=== PATIENT | female | born 1935 | race Caucasian/White ===

== ENCOUNTER 2018-02-09 02:06 | Emergency (ER) | payer MEDICARE, OTHER ==
[~2018-02-09] VITALS: Ht 165.1 cm; Wt 70.3 kg
[~2018-02-09 02:06] MED LIST: ATOR10; Aspirin EC81 MG PO; DONE5; ELIQUIS5 MG PO; LEVSOD50 PO; METO25ER; MYRBETRIQ25 MG
[2018-02-09 02:50] LABS: Calcium, Ionized (POC) 1.19 mmol/L (1.10-1.46); Chloride (POC) 101 mmol/L (98-108); Creatinine (POC) 0.7 mg/dL (0.6-1.0); Glucose (ISTAT POC) 103 mg/dL (70-99); Hemoglobin (POC) 12.6 g/dL (12.0-16.0); Potassium (POC) 3.7 mmol/L (3.5-5.5); Sodium (POC) 141 mmol/L (135-148); Total CO2 (POC) 28 mmol/L (21-32)
== END 2018-02-09 03:10 | disposition home or self-care (01) ==
LOC: ER 02:06
PROVIDERS: Emergency Medicine
DX: S39.012A Strain of muscle, fascia and tendon of lower back, initial encounter (principal); S29.012A Strain of muscle and tendon of back wall of thorax, initial encounter; I25.2 Old myocardial infarction; I10 Essential (primary) hypertension; I48.91 Unspecified atrial fibrillation; Z88.0 Allergy status to penicillin; Z79.899 Other long term (current) drug therapy; W11.XXXA Fall on and from ladder, initial encounter
CPT/HCPCS: 80047; 81000; 85014; 96372; 99283; J1885

== ENCOUNTER 2018-02-11 22:33 | Observation (INO) | payer MEDICARE, OTHER ==
[~2018-02-11] VITALS: Ht 165.1 cm; Wt 69.1 kg
[2018-02-11 23:54] LABS: BASOPHILS ABSOLUTE AUTO 0.06 K/mm3 (0.00-0.23); BASOPHILS PERCENT AUTO 1 % (0-2); EOSINOPHILS ABSOLUTE AUTO 0.18 K/mm3 (0.00-0.68); EOSINOPHILS PERCENT AUTO 2 % (0-6); Hematocrit 39.1 % (33.0-51.0); IMMATURE GRAN ABSOLUTE AUTO 0.02 K/mm3 (0.00-0.10); IMMATURE GRAN PERCENT AUTO 0 % (0-1); LYMPHOCYTES ABSOLUTE AUTO 2.99 K/mm3 (0.84-5.20); LYMPHOCYTES PERCENT AUTO 39 % (21-46); MONOCYTES ABSOLUTE AUTO 0.77 K/mm3 (0.16-1.47); MONOCYTES PERCENT AUTO 10 % (4-13); Mean Corpuscular HGB 29.8 pg (26.0-34.0); Mean Corpuscular HGB Conc 33.2 g/dL (31.5-36.5); Mean Corpuscular Volume 90 fL (80-100); Mean Platelet Volume 10.3 fL (9.1-12.4); NEUTROPHILS ABSOLUTE AUTO 3.67 K/mm3 (1.96-9.15); NEUTROPHILS PERCENT AUTO 48 % (41-73); Platelet Count 240 K/mm3 (150-400); RDW Coefficient Variation 13.1 % (11.7-14.2); RDW Standard Deviation 43.7 fL (35.1-46.3); Red Blood Cell Count 4.36 M/mm3 (3.80-5.20); White Blood Cell Count 7.69 K/mm3 (4.00-11.30)
[2018-02-12 00:14] LABS: Alanine Aminotransfer (ALT/SGP 24 U/L (12-78); Albumin, Blood 3.8 g/dL (3.4-5.0); Alk Phos 91 U/L (50-136); Anion Gap 7 mmol/L (6-16); Aspartate Aminotrans (AST/SGOT 19 U/L (12-37); Bilirubin, Total 0.2 mg/dL (0.1-1.0); Blood Urea Nitrogen 13 mg/dL (8-24); Bun/Creatinine Ratio 18.4 (12.0-20.0); CO2, Blood 29 mmol/L (21-32); Calcium, Blood 8.4 mg/dL (8.5-10.1); Chloride, Blood 107 mmol/L (98-108); Creatinine, Blood 0.71 mg/dL (0.40-1.00); Globulin, Blood 3.8 g/dL (2.2-4.0); Glomerular Filtration Rate >60 (60-); Glucose, Blood 98 mg/dL (70-99); Sodium, Blood 143 mmol/L (136-145); Total Protein, Blood 7.6 g/dL (6.4-8.2); Troponin I 0.065 ng/mL (0.000-0.040)
[2018-02-12 02:04] LABS: CHOL/HDL RATIO 4.2; Cholesterol 196 mg/dL (50-200); HDL Cholesterol 47 mg/dL (>39); LDL/HDL RATIO 2.7; Low Density Lipoprotein Chol 127 mg/dL (0-110); Triglycerides 110 mg/dL (30-160); Very Low Density Lipoprot Chol 22 mg/dL (6-32)
== END 2018-02-14 14:35 | disposition home or self-care (01) ==
LOC: ER 22:33 → MEDS 22:34
PROVIDERS: Emergency Medicine
DX: R07.89 Other chest pain (principal); I48.91 Unspecified atrial fibrillation; R79.89 Other specified abnormal findings of blood chemistry; I10 Essential (primary) hypertension; E03.9 Hypothyroidism, unspecified; I25.10 Atherosclerotic heart disease of native coronary artery without angina pectoris; Z88.0 Allergy status to penicillin; I25.2 Old myocardial infarction; Z79.899 Other long term (current) drug therapy; Z79.01 Long term (current) use of anticoagulants
CPT/HCPCS: 36415; 71046; 78452; 80053; 80061; 84484; 85025; 93005; 93010; 93017; 99285-25; A9500; G0378; J0706; J2785

== ENCOUNTER 2018-09-12 08:57 | Day surgery (SDC) | payer MEDICARE, OTHER ==
[~2018-09-12] VITALS: Ht 165.1 cm; Wt 60.2 kg
[~2018-09-12 08:57] MED LIST changes: +ALLEGRA ALLERG180 M1 PO; +ATOR40TA PO; +AZELASTINE137 MCG/0. NS; +DONE10 PO; +MYRBETRIQ25 MG PO; +NITR2.5ER PO
== END 2018-09-12 11:23 | disposition home or self-care (01) ==
LOC: ORSCSDS 08:57
PROVIDERS: Surgery
PROC: 0DBH8ZX Excision of Cecum, Via Natural or Artificial Opening Endoscopic, Diagnostic (ICD-10-PCS; principal; 2018-09-12 10:15)
DX: R19.4 Change in bowel habit (principal); D12.0 Benign neoplasm of cecum; E03.9 Hypothyroidism, unspecified; I48.91 Unspecified atrial fibrillation; Z79.01 Long term (current) use of anticoagulants; E78.5 Hyperlipidemia, unspecified; I25.10 Atherosclerotic heart disease of native coronary artery without angina pectoris; I25.2 Old myocardial infarction; Z79.899 Other long term (current) drug therapy; Z87.891 Personal history of nicotine dependence
CPT/HCPCS: 88305; J2405; J7120

== ENCOUNTER → 2018-11-01 | Outpatient (CLI) | payer MEDICARE, OTHER | END | disposition home or self-care (01) | LOC: LAB 14:07 → LAB SHORT 14:07 | DX: L90.0 Lichen sclerosus et atrophicus (principal) | CPT/HCPCS: 87070; 87077; 87186; 87205 ==

== ENCOUNTER → 2019-03-13 | Outpatient (CLI) | payer MEDICARE, OTHER ==
[~2019-03-13] MED LIST changes: +CEPH500 PO; +Cipro500 MG PO; +Flagyl500 MG PO
[2019-03-13 13:16] LABS: BASOPHILS ABSOLUTE AUTO 0.02 K/mm3 (0.00-0.23); BASOPHILS PERCENT AUTO 0 % (0-2); EOSINOPHILS ABSOLUTE AUTO 0.06 K/mm3 (0.00-0.68); EOSINOPHILS PERCENT AUTO 1 % (0-6); Hematocrit 37.7 % (33.0-51.0); Hemoglobin 12.4 g/dL (11.5-16.0); IMMATURE GRAN ABSOLUTE AUTO 0.02 K/mm3 (0.00-0.10); IMMATURE GRAN PERCENT AUTO 0 % (0-1); LYMPHOCYTES ABSOLUTE AUTO 1.76 K/mm3 (0.84-5.20); LYMPHOCYTES PERCENT AUTO 20 % (21-46); MONOCYTES PERCENT AUTO 8 % (4-13); Mean Corpuscular HGB 30.7 pg (26.0-34.0); Mean Corpuscular HGB Conc 32.9 g/dL (31.5-36.5); Mean Corpuscular Volume 93 fL (80-100); Mean Platelet Volume 11.3 fL (9.1-12.4); NEUTROPHILS ABSOLUTE AUTO 6.25 K/mm3 (1.96-9.15); NEUTROPHILS PERCENT AUTO 71 % (41-73); Platelet Count 211 K/mm3 (150-400); RDW Coefficient Variation 13.7 % (11.7-14.2); RDW Standard Deviation 46.8 fL (35.1-46.3); Red Blood Cell Count 4.04 M/mm3 (3.80-5.20); White Blood Cell Count 8.81 K/mm3 (4.00-11.30)
[2019-03-13 13:37] LABS: Alanine Aminotransfer (ALT/SGP 24 U/L (12-78); Albumin, Blood 3.3 g/dL (3.4-5.0); Albumin/Globulin Ratio 0.9 (0.8-1.8); Alk Phos 86 U/L (50-136); Anion Gap 6 mmol/L (6-16); Aspartate Aminotrans (AST/SGOT 25 U/L (12-37); Bilirubin, Total 0.3 mg/dL (0.1-1.0); Blood Urea Nitrogen 15 mg/dL (8-24); Bun/Creatinine Ratio 22.6 (12.0-20.0); CO2, Blood 27 mmol/L (21-32); Calcium, Blood 8.3 mg/dL (8.5-10.1); Chloride, Blood 107 mmol/L (98-108); Creatinine, Blood 0.66 mg/dL (0.40-1.00); Globulin, Blood 3.6 g/dL (2.2-4.0); Glomerular Filtration Rate >60 (60-); Glucose, Blood 94 mg/dL (70-99); Potassium, Blood 3.7 mmol/L (3.5-5.5); Sodium, Blood 140 mmol/L (136-145); Total Protein, Blood 6.9 g/dL (6.4-8.2)
[2019-03-13 18:59] LABS: Adenovirus F 40/41 Not Detected (NOT DETECT); Astrovirus Not Detected (NOT DETECT); Campylobacter Sp Detected (NOT DETECT); Cryptosporidium Not Detected (NOT DETECT); Cyclospora Cayetanensis Not Detected (NOT DETECT); E. Coli O157 Not Detected (NOT DETECT); Entamoeba Histolytica Not Detected (NOT DETECT); Enteroaggregative E. coli-EAEC Not Detected (NOT DETECT); Enteropathogenic E. coli-EPEC Not Detected (NOT DETECT); Enterotoxigenic E. coli-ETEC Not Detected (NOT DETECT); Giardia Lamblia Not Detected (NOT DETECT); Norovirus GI/GII Not Detected (NOT DETECT); Plesiomonas Shigelloides Not Detected (NOT DETECT); Rotavirus A Not Detected (NOT DETECT); Salmonella Sp Not Detected (NOT DETECT); Sapovirus Not Detected (NOT DETECT); Shiga Toxin-prod E. coli-STEC Not Detected (NOT DETECT); Shigella/Enteroin E. coli-EIEC Not Detected (NOT DETECT); Vibrio Cholerae Not Detected (NOT DETECT); Vibrio Sp Not Detected (NOT DETECT); Yersinia Enterocolitica Not Detected (NOT DETECT)
== END ==
LOC: LAB 13:05 → LAB SHORT 13:05
PROVIDERS: Nurse Practitioner
DX: R10.84 Generalized abdominal pain (principal); R19.7 Diarrhea, unspecified
CPT/HCPCS: 0097U; 80053; 85025

== ENCOUNTER 2019-04-01 13:06 | Day surgery (SDC) | payer MEDICARE, OTHER ==
[~2019-04-01] VITALS: Ht 165.1 cm; Wt 55.8 kg
[~2019-04-01 13:06] MED LIST changes: -CEPH500 PO; -Cipro500 MG PO; -Flagyl500 MG PO
== END 2019-04-01 15:40 | disposition home or self-care (01) ==
LOC: ORSCSDS 13:06
PROVIDERS: Surgery
PROC: 0DBM8ZX Excision of Descending Colon, Via Natural or Artificial Opening Endoscopic, Diagnostic (ICD-10-PCS; principal; 2019-04-01 14:30)
DX: R19.4 Change in bowel habit (principal); D12.4 Benign neoplasm of descending colon; Z86.010 Personal history of colon polyps; K57.30 Diverticulosis of large intestine without perforation or abscess without bleeding; E03.9 Hypothyroidism, unspecified; I25.2 Old myocardial infarction; Z79.899 Other long term (current) drug therapy
CPT/HCPCS: 88305; J2405; J2704; J7120

== ENCOUNTER 2019-05-09 04:48 | Emergency (ER) | payer MEDICARE, OTHER ==
[~2019-05-09] VITALS: Ht 165.1 cm; Wt 54.4 kg
[2019-05-09 07:33] LABS: BASOPHILS ABSOLUTE AUTO 0.04 K/mm3 (0.00-0.23); BASOPHILS PERCENT AUTO 0 % (0-2); EOSINOPHILS ABSOLUTE AUTO 0.07 K/mm3 (0.00-0.68); EOSINOPHILS PERCENT AUTO 1 % (0-6); Hematocrit 36.8 % (33.0-51.0); Hemoglobin 12.4 g/dL (11.5-16.0); IMMATURE GRAN ABSOLUTE AUTO 0.03 K/mm3 (0.00-0.10); IMMATURE GRAN PERCENT AUTO 0 % (0-1); LYMPHOCYTES ABSOLUTE AUTO 1.71 K/mm3 (0.84-5.20); LYMPHOCYTES PERCENT AUTO 17 % (21-46); MONOCYTES ABSOLUTE AUTO 0.91 K/mm3 (0.16-1.47); MONOCYTES PERCENT AUTO 9 % (4-13); Mean Corpuscular HGB 30.7 pg (26.0-34.0); Mean Corpuscular HGB Conc 33.7 g/dL (31.5-36.5); Mean Corpuscular Volume 91 fL (80-100); Mean Platelet Volume 11.2 fL (9.1-12.4); NEUTROPHILS ABSOLUTE AUTO 7.26 K/mm3 (1.96-9.15); NEUTROPHILS PERCENT AUTO 72 % (41-73); Platelet Count 271 K/mm3 (150-400); RDW Coefficient Variation 14.1 % (11.7-14.2); RDW Standard Deviation 47.3 fL (35.1-46.3); Red Blood Cell Count 4.04 M/mm3 (3.80-5.20); White Blood Cell Count 10.02 K/mm3 (4.00-11.30)
[2019-05-09 08:00] LABS: Alanine Aminotransfer (ALT/SGP 25 U/L (12-78); Albumin, Blood 3.1 g/dL (3.4-5.0); Alk Phos 74 U/L (50-136); Anion Gap 6 mmol/L (6-16); Aspartate Aminotrans (AST/SGOT 23 U/L (12-37); Bilirubin, Total 0.4 mg/dL (0.1-1.0); Blood Urea Nitrogen 13 mg/dL (8-24); Bun/Creatinine Ratio 21.7 (12.0-20.0); CO2, Blood 28 mmol/L (21-32); Calcium, Blood 8.4 mg/dL (8.5-10.1); Chloride, Blood 108 mmol/L (98-108); Glomerular Filtration Rate >60 (60-); Glucose, Blood 89 mg/dL (70-99); Potassium, Blood 3.6 mmol/L (3.5-5.5); Sodium, Blood 142 mmol/L (136-145); Total Protein, Blood 6.1 g/dL (6.4-8.2)
[2019-05-09] MEDS ORDERED: Flagyl500 MG PO (08:45)
[2019-05-09] MEDS ORDERED: Cipro500 MG PO (08:45)
== END 2019-05-09 09:25 | disposition home or self-care (01) ==
LOC: ER 04:48
PROVIDERS: Emergency Medicine
DX: K57.32 Diverticulitis of large intestine without perforation or abscess without bleeding (principal); I25.2 Old myocardial infarction; I10 Essential (primary) hypertension; I48.91 Unspecified atrial fibrillation; Z88.0 Allergy status to penicillin; Z79.899 Other long term (current) drug therapy
CPT/HCPCS: 74176; 80053; 83690; 85025; 96360; 99284-25; J7030

== ENCOUNTER 2019-06-01 14:02 | Emergency (ER) | payer MEDICARE, OTHER ==
[~2019-06-01] VITALS: Ht 165.1 cm; Wt 51.3 kg
[~2019-06-01 14:02] MED LIST changes: +Cipro500 MG PO; +Flagyl500 MG PO
[2019-06-01 14:40] LABS: BASOPHILS ABSOLUTE AUTO 0.03 K/mm3 (0.00-0.23); BASOPHILS PERCENT AUTO 1 % (0-2); EOSINOPHILS ABSOLUTE AUTO 0.09 K/mm3 (0.00-0.68); EOSINOPHILS PERCENT AUTO 1 % (0-6); Hematocrit 37.6 % (33.0-51.0); Hemoglobin 12.7 g/dL (11.5-16.0); IMMATURE GRAN ABSOLUTE AUTO 0.01 K/mm3 (0.00-0.10); IMMATURE GRAN PERCENT AUTO 0 % (0-1); LYMPHOCYTES ABSOLUTE AUTO 1.18 K/mm3 (0.84-5.20); LYMPHOCYTES PERCENT AUTO 18 % (21-46); MONOCYTES ABSOLUTE AUTO 0.82 K/mm3 (0.16-1.47); MONOCYTES PERCENT AUTO 13 % (4-13); Mean Corpuscular HGB 30.3 pg (26.0-34.0); Mean Corpuscular HGB Conc 33.8 g/dL (31.5-36.5); Mean Corpuscular Volume 90 fL (80-100); Mean Platelet Volume 10.8 fL (9.1-12.4); NEUTROPHILS ABSOLUTE AUTO 4.33 K/mm3 (1.96-9.15); NEUTROPHILS PERCENT AUTO 67 % (41-73); Platelet Count 206 K/mm3 (150-400); RDW Coefficient Variation 14.2 % (11.7-14.2); RDW Standard Deviation 46.5 fL (35.1-46.3); Red Blood Cell Count 4.19 M/mm3 (3.80-5.20); White Blood Cell Count 6.46 K/mm3 (4.00-11.30)
[2019-06-01 15:04] LABS: Alanine Aminotransfer (ALT/SGP 62 U/L (12-78); Albumin/Globulin Ratio 0.8 (0.8-1.8); Alk Phos 151 U/L (50-136); Anion Gap 6 mmol/L (6-16); Aspartate Aminotrans (AST/SGOT 72 U/L (12-37); Bilirubin, Total 0.3 mg/dL (0.1-1.0); Blood Urea Nitrogen 19 mg/dL (8-24); Bun/Creatinine Ratio 30.2 (12.0-20.0); CO2, Blood 28 mmol/L (21-32); Calcium, Blood 8.3 mg/dL (8.5-10.1); Chloride, Blood 105 mmol/L (98-108); Creatinine, Blood 0.63 mg/dL (0.40-1.00); Globulin, Blood 3.7 g/dL (2.2-4.0); Glomerular Filtration Rate >60 (60-); Glucose, Blood 111 mg/dL (70-99); Potassium, Blood 3.6 mmol/L (3.5-5.5); Sodium, Blood 139 mmol/L (136-145); Total Protein, Blood 6.7 g/dL (6.4-8.2)
[2019-06-01 16:05] LABS: Source, Urine Clean Catch
[2019-06-01 16:09] LABS: Blood, Urine 2+ (Neg); Glucose Qualitative, Urine Neg (Neg); Ketones, Urine 2+ (Neg); Leukocyte Esterase, Urine 1+ (Neg); Nitrite, Urine Neg (Neg); Protein, Urine 2+ (Neg); Specific Gravity, Urine 1.025 (1.003-1.022); Urobilinogen, Urine 1+ (Normal)
[2019-06-01 16:20] LABS: Bilirubin, Urine 1+ (Neg)
[2019-06-01 16:24] LABS: Appearance, Urine Hazy (Clear); Color, Urine Yellow (P-Yellow)
[2019-06-01 16:26] LABS: Bacteria Many /hpf; Mucus Mod (0-Heavy); Red Blood Cells, Urine 0-2 /hpf (0-2); Squamous Epithelial Cells Few /hpf (Few); White Blood Cells, Urine 0-2 /hpf (0-5)
[2019-06-01] MEDS ORDERED: CEPH500 PO (16:39)
== END 2019-06-01 16:55 | disposition home or self-care (01) ==
LOC: ER 14:02
PROVIDERS: Physician Assistant
DX: N12 Tubulo-interstitial nephritis, not specified as acute or chronic (principal); N39.0 Urinary tract infection, site not specified; E78.5 Hyperlipidemia, unspecified; I48.91 Unspecified atrial fibrillation; I10 Essential (primary) hypertension; F03.90 Unspecified dementia, unspecified severity, without behavioral disturbance, psychotic disturbance, mood disturbance, and anxiety; E03.9 Hypothyroidism, unspecified; Z79.899 Other long term (current) drug therapy
CPT/HCPCS: 36415; 74176; 80053; 81001; 85025; 87086; 99284-25; P9612

== ENCOUNTER 2020-03-22 16:22 | Observation (INO) | payer MEDICARE, OTHER ==
[~2020-03-22] VITALS: Ht 167.6 cm; Wt 60.6 kg
[~2020-03-22 16:22] MED LIST changes: +CEPH500 PO; -DONE10 PO; +DONEPEZIL HCL10 MG PO; -LEVSOD50 PO; +LEVSOD75 PO
[2020-03-22 17:11] LABS: Bicarbonate Venous 27.7 mmol/L (24.0-30.0); PCO2 Venous 41.4 mmHg (38-42); PO2 Venous 139 mmHg (38-42); pH Blood Venous 7.44 (7.34-7.37)
[2020-03-22 17:12] LABS: BASOPHILS ABSOLUTE AUTO 0.03 K/mm3 (0.00-0.23); BASOPHILS PERCENT AUTO 0 % (0-2); EOSINOPHILS ABSOLUTE AUTO 0.14 K/mm3 (0.00-0.68); EOSINOPHILS PERCENT AUTO 2 % (0-6); Hematocrit 31.2 % (33.0-51.0); Hemoglobin 10.2 g/dL (11.5-16.0); IMMATURE GRAN ABSOLUTE AUTO 0.02 K/mm3 (0.00-0.10); IMMATURE GRAN PERCENT AUTO 0 % (0-1); LYMPHOCYTES PERCENT AUTO 29 % (21-46); MONOCYTES ABSOLUTE AUTO 0.77 K/mm3 (0.16-1.47); MONOCYTES PERCENT AUTO 11 % (4-13); Mean Corpuscular HGB 30.3 pg (26.0-34.0); Mean Corpuscular HGB Conc 32.7 g/dL (31.5-36.5); Mean Corpuscular Volume 93 fL (80-100); Mean Platelet Volume 10.1 fL (9.1-12.4); NEUTROPHILS ABSOLUTE AUTO 3.85 K/mm3 (1.96-9.15); NEUTROPHILS PERCENT AUTO 57 % (41-73); Platelet Count 257 K/mm3 (150-400); RDW Coefficient Variation 14.1 % (11.7-14.2); RDW Standard Deviation 47.8 fL (35.1-46.3); Red Blood Cell Count 3.37 M/mm3 (3.80-5.20); White Blood Cell Count 6.81 K/mm3 (4.00-11.30)
[2020-03-22 17:45] LABS: Alanine Aminotransfer (ALT/SGP 18 U/L (12-78); Albumin, Blood 2.9 g/dL (3.4-5.0); Albumin/Globulin Ratio 0.8 (0.8-1.8); Alk Phos 84 U/L (50-136); Anion Gap 3 mmol/L (6-16); Aspartate Aminotrans (AST/SGOT 21 U/L (12-37); Bilirubin, Total 0.2 mg/dL (0.1-1.0); Blood Urea Nitrogen 20 mg/dL (8-24); CO2, Blood 29 mmol/L (21-32); Calcium, Blood 8.1 mg/dL (8.5-10.1); Chloride, Blood 107 mmol/L (98-108); Creatinine, Blood 0.69 mg/dL (0.40-1.00); Globulin, Blood 3.6 g/dL (2.2-4.0); Glomerular Filtration Rate >60 (60-); Glucose, Blood 101 mg/dL (70-99); Potassium, Blood 3.8 mmol/L (3.5-5.5); Sodium, Blood 139 mmol/L (136-145); Total Protein, Blood 6.5 g/dL (6.4-8.2); Troponin I 0.124 ng/mL (0.000-0.040)
[2020-03-22] MEDS ORDERED: ANASTROZOLE5 GM (19:46)
[2020-03-22] MEDS ORDERED: ANAS1 PO (19:46)
[2020-03-22 22:20] LABS: Source, Urine Voided
[2020-03-22 22:25] LABS: Bilirubin, Urine Neg (Neg); Blood, Urine 1+ (Neg); Glucose Qualitative, Urine Neg (Neg); Ketones, Urine Neg (Neg); Leukocyte Esterase, Urine Neg (Neg); Nitrite, Urine Neg (Neg); Protein, Urine Neg (Neg); Urobilinogen, Urine NORM (Normal)
[2020-03-22 22:27] LABS: Appearance, Urine Clear (Clear); Color, Urine Yellow (P-Yellow)
[2020-03-22 22:37] LABS: Bacteria Few /hpf; Red Blood Cells, Urine 0-2 /hpf (0-2); Squamous Epithelial Cells Rare /hpf (Few); White Blood Cells, Urine 0-2 /hpf (0-5)
--- NOTE | 2020-03-23 04:55 | NUR ---
SENIOR RESEARCH FELLOW SUMMARY NEW ADMIT FROM THE ED TONIGHT. PT ADMITTED FOR CP, HOWEVER PT HAS NOT HAD CP SINCE TAKING NITRO AT HOME. PT AAOX3 BUT DOES HAVE BASELINE DEMENTIA AND IS FORGETFUL. BED ALARM ON FOR SAFETY PT FORGETS TO CALL FOR ASSISTANCE. INITIAL TROPONIN 0.124, 2ND TROP 0.130 AT 0300. NO ASYMPTOMATIC AND HAS BEEN SLEEPING. SINUS JIMMY W/ PAC'S ON TELE. VSS, WILL CONTINUE TO MONITOR.
--- NOTE | 2020-03-23 17:04 | NUR ---
SHE HAS HAD A DAY WITHOUT COMPLAINT. SHE HAS DENIED CP TO ME. HER ONLY COMPLAINT WAS IN HER L LOWER LEG. SHE SAYS SHE CAN'T DESCRIBE IT BUT MAYBE NUMB AND ACHEY. IT HAS BEEN THIS WAY IN RECENT MONTHS. TELE SB AND SR JUST BELOW AND ABOVE 60. NO SOB OR DIZZINESS. SHE WAS NPO AFTER BREAKFAST FOR THE RESTING PHASE OF HER STRESS TEST BUT WAS GIVEN HER LUNCH TRAY PREMATURELY SO IT WAS CANCELLED. [facility] IN [facility] CALLED ME THIS AFTERNOON AND SAYS FER WILL NOW HAVE A 1 DAY STRESS TEST TOMORROW STARTING ABOUT NOON. SHE WILL NEED AN EARLY BREAKFAST THEN NPO EXCEPT WATER AND MEDS BY 0830. THIS HAS BEEN ORDERED THROUGH DI[facility] ALREADY. NO CAFFEINE. HER ECHO WAS DONE. SHE HAS A HX OF A L MASTECTOMY WITH A LYMPH NODE REMOVED IN JANUARY. SHE HAS 2 HARD HEMATOMAS ONE ON CHESTWALL AND ONE IN THE AXILLARY REGION. STOPPED BY TO SEE HER PER THE DAUGHTER'S REQUEST. HE WILL DRAIN THE HEMATOMAS AN OUTPT. SIGN POSTED TO AVOID HER L ARM IN THE FUTURE FOR LAB DRAWS OR BP'S. HER DAUGHTER VISITED FOR A FEW HRS AND JUST LEFT.
--- NOTE | 2020-03-24 07:19 | NUR ---
SHIFT SUMMARY PT IS AN 85 Y/O FEMALE, ADMITTED FOR CHEST PAIN. SHE IS A&O X 2, FORGETFUL, WITH A HX OF DEMENTIA. NO COMPLAINTS OF PAIN, NAUSEA OR SOB, THOUGH SHE DID REPORT INTERMITTENT CHEST PRESSURE. VITAL SIGNS STABLE. PT TO BE NPO AFTER BREAKFAST THIS MORNING FOR A STRESS TEST TODAY. NO OTHER ACUTE CHANGES IN PT CONDITION NOTED. WILL CONTINUE TO MONITOR AND TREAT PER EMAR UNTIL HAND OFF TO DAY SHIFT RN.
--- NOTE | 2020-03-24 07:28 | NUR ---
ASSUMED PATIENT CARE. PATIENT RESTING COMFORTABLY IN BED, CONVERSING WITH NURSING STAFF. NO SIGNS OF ACUTE DISTRESS, WCTM.
[2020-03-24 08:19] LABS: Hematocrit 36.3 % (33.0-51.0); Hemoglobin 11.6 g/dL (11.5-16.0)
--- NOTE | 2020-03-24 15:00 | NUR ---
PATIENT ENDORSED EXPERIENCING CHEST PAIN, PAIN RESOLVED AFTER TAKING A DEEP BREATH AND REMAINED ABSENT. WCTM.
--- NOTE | 2020-03-24 18:10 | NUR ---
NO ACUTE EVENTS THIS SHIFT. PATIENT INDEPENDENT IN ROOM, ON RA, ORIENTED TO SELF AND SITUATION. PATIENT COMPLETED 1-DAY STRESS TEST, NORMAL PERFUSION STUDY AND EF > 60% PER PERFUSION STUDY REPORT. NO SIGNS OF ACUTE DISTRESS, NOTED, VSS. PLAN IS FOR DISCHARGE AFTER STRESS TEST REVIEWED BY PROVIDER, DR. MOURA NOTIFIED, DC INSTRUCTIONS AND ORDERS TO FOLLOW FROM RESIDENT. WCTM.
--- NOTE | 2020-03-24 19:11 | NUR ---
RELINQUISHED PATIENT CARE.
[2020-03-24] MEDS ORDERED: ASPI81CH PO (19:50)
--- NOTE | 2020-03-24 20:40 | NUR ---
DISCHARGE INSTRUCTIONS REVIEWED WITH PT AND PT'S DAUGHTER. NO QUESTIONS OR CONCERNS. DISCHARGE PAPER SIGNED BY PT AND PLACED INTO CHART. DISCHARGE INSTRUCTIONS GIVEN TO PT'S DAUGHTER. IV ACCESS TO LEFT WRIST D/C'D. ALL PERSONAL BELONGINGS SENT HOME WITH PT. PT'S DAUGHTER TO PROVIDE TRANSPORTATION TO HOME. PT TAKEN VIA W/C TO OUTSIDE OF HOSPITAL.
== END 2020-03-24 20:40 | disposition home or self-care (01) ==
LOC: ER 16:22 → MEDS 16:23
PROVIDERS: Emergency Medicine; Internal Medicine; ADMIT Internal Medicine
DX: R07.9 Chest pain, unspecified (principal); C50.919 Malignant neoplasm of unspecified site of unspecified female breast; F03.90 Unspecified dementia, unspecified severity, without behavioral disturbance, psychotic disturbance, mood disturbance, and anxiety; I10 Essential (primary) hypertension; I48.0 Paroxysmal atrial fibrillation; E78.5 Hyperlipidemia, unspecified; I25.2 Old myocardial infarction; E03.9 Hypothyroidism, unspecified; I44.0 Atrioventricular block, first degree; I44.4 Left anterior fascicular block; L76.32 Postprocedural hematoma of skin and subcutaneous tissue following other procedure; Z88.0 Allergy status to penicillin; Z66 Do not resuscitate; Z79.899 Other long term (current) drug therapy
CPT/HCPCS: 36415; 71045; 78452; 80053; 81001; 82803; 83880; 84484; 85014; 85018; 85025; 93005; 93010; 93017; 93306; 96361; 96374; 99285-25; A9270-GY; A9500; G0378; J0706; J2405; J2785; J7030

== ENCOUNTER → 2020-06-15 | Outpatient (CLI) | payer MEDICARE, OTHER ==
[~2020-06-15] MED LIST changes: +ANAS1 PO; +ANASTROZOLE5 GM; +ASPI81CH PO
== END ==
LOC: LAB 18:49 → LAB SHORT 18:49
DX: L08.9 Local infection of the skin and subcutaneous tissue, unspecified (principal); L81.4 Other melanin hyperpigmentation
CPT/HCPCS: 87070; 87077; 87147; 87186; 87205

== ENCOUNTER → 2020-10-04 | Outpatient (CLI) | payer MEDICARE, OTHER | LOC: PLD 13:27 → LAB SHORT 13:27 | DX: L98.9 Disorder of the skin and subcutaneous tissue, unspecified (principal); M79.671 Pain in right foot; Z88.0 Allergy status to penicillin | CPT/HCPCS: 88305; 88311 ==

== ENCOUNTER 2021-03-24 15:50 | Emergency (ER) | payer MEDICARE, OTHER ==
[~2021-03-24] VITALS: Ht 165.1 cm; Wt 68.0 kg
[2021-03-24 16:27] LABS: BASOPHILS ABSOLUTE AUTO 0.04 K/mm3 (0.00-0.23); BASOPHILS PERCENT AUTO 0 % (0-2); EOSINOPHILS PERCENT AUTO 1 % (0-6); Hematocrit 39.4 % (33.0-51.0); Hemoglobin 13.2 g/dL (11.5-16.0); IMMATURE GRAN ABSOLUTE AUTO 0.03 K/mm3 (0.00-0.10); IMMATURE GRAN PERCENT AUTO 0 % (0-1); LYMPHOCYTES ABSOLUTE AUTO 1.86 K/mm3 (0.84-5.20); LYMPHOCYTES PERCENT AUTO 20 % (21-46); MONOCYTES ABSOLUTE AUTO 0.72 K/mm3 (0.16-1.47); MONOCYTES PERCENT AUTO 8 % (4-13); Mean Corpuscular HGB 29.7 pg (26.0-34.0); Mean Corpuscular HGB Conc 33.5 g/dL (31.5-36.5); Mean Corpuscular Volume 89 fL (80-100); Mean Platelet Volume 10.3 fL (9.1-12.4); NEUTROPHILS ABSOLUTE AUTO 6.37 K/mm3 (1.96-9.15); NEUTROPHILS PERCENT AUTO 70 % (41-73); Platelet Count 227 K/mm3 (150-400); RDW Coefficient Variation 14.2 % (11.7-14.2); Red Blood Cell Count 4.44 M/mm3 (3.80-5.20); White Blood Cell Count 9.12 K/mm3 (4.00-11.30)
[2021-03-24 16:44] LABS: Alanine Aminotransfer (ALT/SGP 25 U/L (12-78); Albumin, Blood 3.8 g/dL (3.4-5.0); Alk Phos 67 U/L (50-136); Anion Gap 2 mmol/L (6-16); Aspartate Aminotrans (AST/SGOT 26 U/L (12-37); Bilirubin, Total 0.3 mg/dL (0.1-1.0); Blood Urea Nitrogen 19 mg/dL (8-24); Bun/Creatinine Ratio 25.9 (12.0-20.0); CO2, Blood 30 mmol/L (21-32); Calcium, Blood 8.9 mg/dL (8.5-10.1); Chloride, Blood 107 mmol/L (98-108); Creatinine, Blood 0.73 mg/dL (0.40-1.00); Globulin, Blood 3.7 g/dL (2.2-4.0); Glomerular Filtration Rate >60 (60-); Glucose, Blood 94 mg/dL (70-99); Potassium, Blood 4.2 mmol/L (3.5-5.5); Sodium, Blood 139 mmol/L (136-145); Total Protein, Blood 7.5 g/dL (6.4-8.2)
[2021-03-24 18:03] LABS: Source, Urine Catheter
[2021-03-24 18:09] LABS: Appearance, Urine Clear (Clear); Bilirubin, Urine Neg (Neg); Blood, Urine 1+ (Neg); Color, Urine Yellow (P-Yellow); Glucose Qualitative, Urine Neg (Neg); Ketones, Urine Neg (Neg); Leukocyte Esterase, Urine 1+ (Neg); Nitrite, Urine Neg (Neg); Protein, Urine 1+ (Neg); Specific Gravity, Urine 1.015 (1.003-1.022); Urobilinogen, Urine NORM (Normal)
[2021-03-24 18:23] LABS: Bacteria Rare /hpf; Red Blood Cells, Urine 0-2 /hpf (0-2); Squamous Epithelial Cells Rare /hpf (Few); White Blood Cells, Urine 0-2 /hpf (0-5)
[2021-03-24] MEDS ORDERED: MAGCIT300 PO (20:38)
== END 2021-03-24 20:58 | disposition home or self-care (01) ==
LOC: ER 15:50
PROVIDERS: Physician Assistant
DX: K59.00 Constipation, unspecified (principal); Z88.0 Allergy status to penicillin; I10 Essential (primary) hypertension; E03.9 Hypothyroidism, unspecified; F03.90 Unspecified dementia, unspecified severity, without behavioral disturbance, psychotic disturbance, mood disturbance, and anxiety; Z79.890 Hormone replacement therapy; Z79.899 Other long term (current) drug therapy; Z79.82 Long term (current) use of aspirin
CPT/HCPCS: 36415; 74176; 80053; 81001; 83690; 85025; 87077; 87086; 87186; 93005; 93010; 99284-25

== ENCOUNTER → 2021-06-30 | Outpatient (CLI) | payer MEDICARE, OTHER ==
[~2021-06-30] MED LIST changes: +MAGCIT300 PO
[2021-06-30 15:49] LABS: BASOPHILS ABSOLUTE AUTO 0.05 K/mm3 (0.00-0.23); BASOPHILS PERCENT AUTO 1 % (0-2); EOSINOPHILS ABSOLUTE AUTO 0.09 K/mm3 (0.00-0.68); EOSINOPHILS PERCENT AUTO 1 % (0-6); Hemoglobin 13.2 g/dL (11.5-16.0); IMMATURE GRAN ABSOLUTE AUTO 0.04 K/mm3 (0.00-0.10); IMMATURE GRAN PERCENT AUTO 1 % (0-1); LYMPHOCYTES ABSOLUTE AUTO 2.54 K/mm3 (0.84-5.20); LYMPHOCYTES PERCENT AUTO 30 % (21-46); MONOCYTES ABSOLUTE AUTO 0.84 K/mm3 (0.16-1.47); MONOCYTES PERCENT AUTO 10 % (4-13); Mean Corpuscular HGB 29.9 pg (26.0-34.0); Mean Corpuscular Volume 91 fL (80-100); Mean Platelet Volume 11.2 fL (9.1-12.4); NEUTROPHILS ABSOLUTE AUTO 4.96 K/mm3 (1.96-9.15); NEUTROPHILS PERCENT AUTO 58 % (41-73); Platelet Count 255 K/mm3 (150-400); RDW Coefficient Variation 13.9 % (11.7-14.2); RDW Standard Deviation 46.5 fL (35.1-46.3); Red Blood Cell Count 4.42 M/mm3 (3.80-5.20); White Blood Cell Count 8.52 K/mm3 (4.00-11.30)
[2021-06-30 16:16] LABS: Free Thyroxine 1.3 ng/dL (0.70-1.60)
== END | disposition home or self-care (01) ==
LOC: LAB 12:00 → LAB SHORT 12:00
PROVIDERS: Internal Medicine
DX: G30.9 Alzheimer's disease, unspecified (principal)
CPT/HCPCS: 82607; 82746; 84439; 84443; 85025; 85651; 86592; 86780

== ENCOUNTER 2021-07-21 11:52 | Observation (INO) | payer MEDICARE, OTHER ==
[~2021-07-21] VITALS: Ht 162.6 cm; Wt 69.9 kg
[2021-07-21 12:53] LABS: BASOPHILS ABSOLUTE AUTO 0.03 K/mm3 (0.00-0.23); BASOPHILS PERCENT AUTO 0 % (0-2); EOSINOPHILS PERCENT AUTO 1 % (0-6); Hematocrit 38.8 % (33.0-51.0); Hemoglobin 12.9 g/dL (11.5-16.0); IMMATURE GRAN ABSOLUTE AUTO 0.03 K/mm3 (0.00-0.10); IMMATURE GRAN PERCENT AUTO 0 % (0-1); LYMPHOCYTES ABSOLUTE AUTO 2.26 K/mm3 (0.84-5.20); LYMPHOCYTES PERCENT AUTO 24 % (21-46); MONOCYTES ABSOLUTE AUTO 1.05 K/mm3 (0.16-1.47); MONOCYTES PERCENT AUTO 11 % (4-13); Mean Corpuscular HGB 30.1 pg (26.0-34.0); Mean Corpuscular HGB Conc 33.2 g/dL (31.5-36.5); Mean Corpuscular Volume 90 fL (80-100); NEUTROPHILS ABSOLUTE AUTO 5.85 K/mm3 (1.96-9.15); NEUTROPHILS PERCENT AUTO 63 % (41-73); Platelet Count 224 K/mm3 (150-400); RDW Coefficient Variation 13.9 % (11.7-14.2); RDW Standard Deviation 45.8 fL (35.1-46.3); Red Blood Cell Count 4.29 M/mm3 (3.80-5.20); White Blood Cell Count 9.32 K/mm3 (4.00-11.30)
[2021-07-21 13:17] LABS: Alanine Aminotransfer (ALT/SGP 21 U/L (12-78); Albumin, Blood 3.3 g/dL (3.4-5.0); Albumin/Globulin Ratio 0.8 (0.8-1.8); Alk Phos 70 U/L (50-136); Anion Gap 6 mmol/L (6-16); Aspartate Aminotrans (AST/SGOT 21 U/L (12-37); Bilirubin, Total 0.4 mg/dL (0.1-1.0); Blood Urea Nitrogen 23 mg/dL (8-24); Bun/Creatinine Ratio 29.2 (12.0-20.0); CO2, Blood 29 mmol/L (21-32); Calcium, Blood 8.8 mg/dL (8.5-10.1); Chloride, Blood 105 mmol/L (98-108); Creatinine, Blood 0.79 mg/dL (0.40-1.00); Globulin, Blood 3.9 g/dL (2.2-4.0); Glomerular Filtration Rate >60 (60-); Glucose, Blood 93 mg/dL (70-99); Sodium, Blood 140 mmol/L (136-145); Total Protein, Blood 7.2 g/dL (6.4-8.2); Troponin I 0.184 ng/mL (0.000-0.040)
[2021-07-22 00:03] LABS: Influenza A, PCR NEGATIVE (NEGATIVE); Influenza B, PCR NEGATIVE (NEGATIVE); Resp Syncytial Virus, PCR NEGATIVE (NEGATIVE); SARS-Cov-2 (COVID-19) PCR, MMC NEGATIVE (NEGATIVE)
--- NOTE | 2021-07-22 04:33 | NUR ---
SHIFT SUMMARY PT RECEIVED FROM ER AWAKE AND ALERT TO HIMSELF AND SEEMED CONFUSED, AT BEDSIDE .DNR CODE STATUS. AFTER LEFT , PT BECAME VERY AGITATED AND CONFUSED ,DEMANDING TO GO HOME. HE REMOVED TELEMETRY BOX MULTIPLE TIMES ,GOT DRESSED AND LEFT THE ROOM . SECURITY WAS CALLED FOR ASSISTANCE. WAS CALLED AND CONVINCED PT TO STAY. MD WAS MADE AWARE AND ATIVAN AND RESTRAINT WERE ORDERED. PT MEDICATED PER EMR NEEDED AND BHARAT VEST REMAINS IN PLACE. PT CHECKED Q 2 HRS PER PROTOCOL. BED ALARM ACTIVATED, SIDE RAILS UP FOR SAFTEY. BED IS IN LOW POSITION WITH THE CALL LIGHT WITHIN EASY REACH. WILL CONTINUE MONITORING FREQUENTLY. PT CONTINUES TO REMOVE STORES CLERK DESPITE RE-DIRECTION AND TEACHING.
--- NOTE | 2021-07-22 05:15 | NUR ---
SHIFT SUMMARY PT RECEIVED FROM ER AWAKE AND ALERT TO HERSELF,VERY PLEASANT AND COOPERATIVE. PT IS FORGETFUL AT TIMES BUT REDIRECTED EASILY. PT FORGOT TO CALL FOR HELP MOST OF THE TIMES.PT IS RESTING COMFORTABLY AT THIS TIME,ALL FALL PRECAUTION IN PLACE. PT ON ROOM AIR. NO SIGN OF DISTRESS OBSERVED . WILL CONTIMUE TO MONITOR.
[2021-07-22 06:06] LABS: BASOPHILS ABSOLUTE AUTO 0.04 K/mm3 (0.00-0.23); BASOPHILS PERCENT AUTO 1 % (0-2); EOSINOPHILS ABSOLUTE AUTO 0.14 K/mm3 (0.00-0.68); EOSINOPHILS PERCENT AUTO 2 % (0-6); Hematocrit 35.2 % (33.0-51.0); IMMATURE GRAN ABSOLUTE AUTO 0.01 K/mm3 (0.00-0.10); IMMATURE GRAN PERCENT AUTO 0 % (0-1); LYMPHOCYTES PERCENT AUTO 38 % (21-46); MONOCYTES ABSOLUTE AUTO 0.74 K/mm3 (0.16-1.47); MONOCYTES PERCENT AUTO 12 % (4-13); Mean Corpuscular HGB 30.4 pg (26.0-34.0); Mean Corpuscular HGB Conc 34.1 g/dL (31.5-36.5); Mean Corpuscular Volume 89 fL (80-100); Mean Platelet Volume 10.8 fL (9.1-12.4); NEUTROPHILS ABSOLUTE AUTO 2.96 K/mm3 (1.96-9.15); NEUTROPHILS PERCENT AUTO 47 % (41-73); Platelet Count 192 K/mm3 (150-400); RDW Coefficient Variation 13.6 % (11.7-14.2); RDW Standard Deviation 44.9 fL (35.1-46.3); Red Blood Cell Count 3.95 M/mm3 (3.80-5.20); White Blood Cell Count 6.29 K/mm3 (4.00-11.30)
[2021-07-22 07:19] LABS: Anion Gap 7 mmol/L (6-16); Blood Urea Nitrogen 17 mg/dL (8-24); Bun/Creatinine Ratio 24.8 (12.0-20.0); CO2, Blood 28 mmol/L (21-32); Calcium, Blood 8.3 mg/dL (8.5-10.1); Chloride, Blood 108 mmol/L (98-108); Creatinine, Blood 0.69 mg/dL (0.40-1.00); Glomerular Filtration Rate >60 (60-); Glucose, Blood 86 mg/dL (70-99); Potassium, Blood 3.8 mmol/L (3.5-5.5); Sodium, Blood 143 mmol/L (136-145); Troponin I 0.168 ng/mL (0.000-0.040)
[2021-07-22] MEDS ORDERED: ELIQUIS5 M2 PO (07:32)
[2021-07-22] MEDS ORDERED: Celexa20 MG PO (07:33)
[2021-07-22] MEDS ORDERED: MEMA10 PO (07:35)
[2021-07-22] MEDS ORDERED: MYRBETRIQ50 MG PO (07:36)
[2021-07-22] MEDS ORDERED: QUETIAPINE FUMA25 MG PO (07:37)
--- NOTE | 2021-07-22 14:57 | NUR ---
DISCHARGE HOME PATIENT IS AAOX1 ONLY. PLEASANTLY CONFUSED BUT UNABLE TO BE REORIENTED TO PLACE AND TIME. CONSTANTLY GETTING UP OUT OF BED AND WALKING AROUND ROOM AND UNABLE TO REMAIN STILL. ATE LUNCE WELL AND TOLERATED. VSS. NAD NOTED. NO C/O PAIN, SOB, N/V, OR DISCOMFORT VOICED AT THIS TIME. PT AND OT COMPLETEDED EVALS AND DETERMINED CLEARED FOR HOME WITH NO NEEDS AND SHE HAS A WALKER ALREADY AT HOME. ZIO RESIDENCE LIFE DIRECTOR WAS APPLIED TO B[facility] BY [facility] AND DID TEACHING AND INFORMATION PAMPLET TO SON AND INSTRUCTED TO CALL FOR FOLLOW UP APPOINMENT WITH DR RODRIGUEZ. IV REMOVED IN LEFT AC. HELPED GET DRESSED AND ESCORTED OFF FLOOR VIA WHEELCHAIR BY THE COMMERCIAL LINES ACCOUNT EXECUTIVE AND INTO THE CARE OF THE SON
== END 2021-07-22 14:47 | disposition home health service (06) ==
LOC: ER 11:52 → MEDS 11:53
PROVIDERS: Emergency Medicine; Physician Assistant; ADMIT Internal Medicine
DX: R00.1 Bradycardia, unspecified (principal); I44.0 Atrioventricular block, first degree; R77.8 Other specified abnormalities of plasma proteins; I25.10 Atherosclerotic heart disease of native coronary artery without angina pectoris; I25.2 Old myocardial infarction; E78.5 Hyperlipidemia, unspecified; I48.91 Unspecified atrial fibrillation; I10 Essential (primary) hypertension; F03.90 Unspecified dementia, unspecified severity, without behavioral disturbance, psychotic disturbance, mood disturbance, and anxiety; E03.9 Hypothyroidism, unspecified; Z79.82 Long term (current) use of aspirin; Z79.01 Long term (current) use of anticoagulants; Z88.0 Allergy status to penicillin; Z96.643 Presence of artificial hip joint, bilateral; Z66 Do not resuscitate; Z85.3 Personal history of malignant neoplasm of breast; Z90.12 Acquired absence of left breast and nipple; Z20.822 Contact with and (suspected) exposure to COVID-19
CPT/HCPCS: 0241U; 36415; 71046; 80048; 80053; 83690; 83880; 84443; 84484; 85025; 93005; 93010; 93246; 93306; 97162; 97165; 97530; 97535; A9270

== ENCOUNTER → 2022-09-01 | Outpatient (CLI) | payer MEDICARE, OTHER ==
[~2022-09-01] MED LIST changes: +Celexa20 MG PO; +ELIQUIS5 M2 PO; +MEMA10 PO; +MYRBETRIQ50 MG PO; +QUETIAPINE FUMA25 MG PO
[2022-09-01 18:51] LABS: BASOPHILS ABSOLUTE AUTO 0.05 K/mm3 (0.00-0.23); BASOPHILS PERCENT AUTO 1 % (0-2); EOSINOPHILS ABSOLUTE AUTO 0.11 K/mm3 (0.00-0.68); EOSINOPHILS PERCENT AUTO 2 % (0-6); Hematocrit 37.5 % (33.0-51.0); Hemoglobin 12.7 g/dL (11.5-16.0); IMMATURE GRAN ABSOLUTE AUTO 0.01 K/mm3 (0.00-0.10); IMMATURE GRAN PERCENT AUTO 0 % (0-1); LYMPHOCYTES ABSOLUTE AUTO 2.34 K/mm3 (0.84-5.20); LYMPHOCYTES PERCENT AUTO 33 % (21-46); MONOCYTES ABSOLUTE AUTO 0.69 K/mm3 (0.16-1.47); MONOCYTES PERCENT AUTO 10 % (4-13); Mean Corpuscular HGB 30.5 pg (26.0-34.0); Mean Corpuscular HGB Conc 33.9 g/dL (31.5-36.5); Mean Corpuscular Volume 90 fL (80-100); Mean Platelet Volume 11.5 fL (9.1-12.4); NEUTROPHILS PERCENT AUTO 54 % (41-73); Platelet Count 230 K/mm3 (150-400); RDW Coefficient Variation 13.9 % (11.7-14.2); RDW Standard Deviation 45.7 fL (35.1-46.3); Red Blood Cell Count 4.16 M/mm3 (3.80-5.20)
[2022-09-01 19:30] LABS: Alanine Aminotransfer (ALT/SGP 30 U/L (12-78); Albumin, Blood 3.4 g/dL (3.4-5.0); Albumin/Globulin Ratio 0.9 (0.8-1.8); Alk Phos 59 U/L (50-136); Anion Gap 5 mmol/L (6-16); Aspartate Aminotrans (AST/SGOT 17 U/L (12-37); Bilirubin, Total 0.2 mg/dL (0.1-1.0); Blood Urea Nitrogen 23 mg/dL (8-24); Bun/Creatinine Ratio 32.6 (12.0-20.0); CHOL/HDL RATIO 2.4; CO2, Blood 30 mmol/L (21-32); Calcium, Blood 8.5 mg/dL (8.5-10.1); Chloride, Blood 104 mmol/L (98-108); Cholesterol 130 mg/dL (50-200); Creatinine, Blood 0.71 mg/dL (0.40-1.00); Globulin, Blood 3.7 g/dL (2.2-4.0); Glomerular Filtration Rate 82 (60-); Glucose, Blood 103 mg/dL (70-99); HDL Cholesterol 54 mg/dL (>39); Low Density Lipoprotein Chol 56 mg/dL (0-110); Potassium, Blood 3.9 mmol/L (3.5-5.5); Sodium, Blood 139 mmol/L (136-145); Total Protein, Blood 7.1 g/dL (6.4-8.2); Triglycerides 98 mg/dL (30-160); Very Low Density Lipoprot Chol 19 mg/dL (6-32)
== END | disposition home or self-care (01) ==
LOC: LAB SHORT 17:43 → LAB 17:43
PROVIDERS: Family Medicine
DX: E03.9 Hypothyroidism, unspecified (principal)
CPT/HCPCS: 80053; 80061; 84443; 85025

== ENCOUNTER 2023-06-30 02:02 | Observation (INO) | payer MEDICARE, OTHER ==
[~2023-06-30] VITALS: Ht 170.2 cm; Wt 79.4 kg
[~2023-06-30 02:02] MED LIST changes: +CITALOPRAM HBR10 MG PO; -Celexa20 MG PO; +EUTHYROX88 MCG PO; -LEVSOD75 PO
[2023-06-30 03:22] LABS: BASOPHILS ABSOLUTE AUTO 0.04 K/mm3 (0.00-0.23); BASOPHILS PERCENT AUTO 0 % (0-2); EOSINOPHILS ABSOLUTE AUTO 0.03 K/mm3 (0.00-0.68); EOSINOPHILS PERCENT AUTO 0 % (0-6); Hematocrit 35.6 % (33.0-51.0); Hemoglobin 12.3 g/dL (11.5-16.0); IMMATURE GRAN ABSOLUTE AUTO 0.07 K/mm3 (0.00-0.10); IMMATURE GRAN PERCENT AUTO 1 % (0-1); LYMPHOCYTES ABSOLUTE AUTO 1.32 K/mm3 (0.84-5.20); LYMPHOCYTES PERCENT AUTO 9 % (21-46); MONOCYTES ABSOLUTE AUTO 0.67 K/mm3 (0.16-1.47); MONOCYTES PERCENT AUTO 5 % (4-13); Mean Corpuscular HGB 30.2 pg (26.0-34.0); Mean Corpuscular HGB Conc 34.6 g/dL (31.5-36.5); Mean Corpuscular Volume 88 fL (80-100); Mean Platelet Volume 11.2 fL (9.1-12.4); NEUTROPHILS ABSOLUTE AUTO 11.95 K/mm3 (1.96-9.15); NEUTROPHILS PERCENT AUTO 85 % (41-73); Platelet Count 210 K/mm3 (150-400); RDW Coefficient Variation 13.8 % (11.7-14.2); RDW Standard Deviation 44.2 fL (35.1-46.3); Red Blood Cell Count 4.07 M/mm3 (3.80-5.20); White Blood Cell Count 14.08 K/mm3 (4.00-11.30)
[2023-06-30 03:34] LABS: Albumin, Blood 3.6 g/dL (3.4-5.0); Bilirubin, Total 0.5 mg/dL (0.1-1.0); Bun/Creatinine Ratio 26.6 (12.0-20.0); Calcium, Blood 8.4 mg/dL (8.5-10.1); Creatinine, Blood 0.75 mg/dL (0.40-1.00); Globulin, Blood 3.6 g/dL (2.2-4.0); Potassium, Blood 3.9 mmol/L (3.5-5.5); Total Protein, Blood 7.2 g/dL (6.4-8.2)
[2023-06-30 04:30] VITALS: BP 133/68
[2023-06-30] MEDS ORDERED: ELIQUIS5 M3 PO (04:44)
--- NOTE | 2023-06-30 06:08 | NUR ---
ADMIT/ SHIFT SUMMARY PATIENT ARRIVED TO MEDICAL FLOOR FROM EMERGENCY ROOM. PATIENT HAD A GLF AND IS ON COMFORT CARE. PATIENT WAS HELPED TO COMMODE TO URINATE. PATIENT WAS MEDICATED FOR FACIAL PAIN. MEDICATED PER EMAR. SON IS WITH PATIENT. SEIZURE PRECAUTIONS ARE IN PLACE. BED ALARM IS ON. BED IN LOCKED AND LOWEST POSITION.
--- NOTE | 2023-06-30 12:49 | NUR ---
Brief visit this afternoon. Pt appears to be resting peacefully with no S/S of distress at this time. Pt left undisturbed at this time. No family at bedside. Spoke with Primary RN Renita and discussed case. Palliative Care will remain available
--- NOTE | 2023-06-30 16:24 | NUR ---
SHIFT SUMMARY: FER HAS RESTED QUIETLY THIS SHIFT. SHE DID PULL AT THE COVERS WHILE BEING REPOSITIONED AND MADE A QUIET "HMM?" IN RESPONSE TO STAFF SAYING PT'S NAME. ATTENDS CLEAN AND DRY, NO OUTPUT THIS SHIFT. PT HAS NOT EXHIBITED ANY NON-VERBAL PAIN BEHAVIOR AND DID NOT ANSWER ASSESSMENT QUESTIONS. BRUISING NOTED TO RIGHT EYE THAT WAS NOT VISUALIZED EARLIER IN THE SHIFT. PT HAS BEEN TURNING AND REPOSITIONING SELF IN BED. SHE IS LYING IN BED WITH THE CALL LIGHT IN REACH.
--- NOTE | 2023-07-01 04:43 | NUR ---
SHIFT SUMMARY: PT IS ADMITTED FOR INTRACRANIAL HEMORRHAGE AND IS A DNR. IS ALERT AND ABLE TO MAKE SOME NEEDS KNOW. 1P ADLs FOR BED MOBILITY. DID GET UP ONE TIME DURING THE SHIFT AND USE THE RESTROOM. DID NOT CALL OR WAIT FOR STAFF. WAS VERY CONFUSED TO SITUATION. DID HAVE AN UNSTEADY GAIT. WHEN ASKED ABOUT PAIN SHE WOULD STATE I DON T KNOW. NO SX OF PAIN NOTED. IV TO RIGHT AC IS PATENT WITH DRESSING THAT IS CDI.
--- NOTE | 2023-07-01 08:49 | NUR ---
Comfort Care Visit Pt resting in bed with her eyes closed upon arrival. Pt responds to gentle verbal stimuli but difficult to understand as responses are garbled and sounds non sensical. Pt denies pain or discomfort at this time. Pt quickly closed her eyes. Palliative Care will remain available
--- NOTE | 2023-07-01 18:57 | NUR ---
SHIFT SUMMARY: FER HAS BEEN AROUSABLE TO VOICE THIS SHIFT. SHE HAS GOTTEN OUT OF BED TWICE TO AMBULATE TO THE BATHROOM, BED ALARM IN PLACE. PT DOES NOT FOLLOW DIRECTIONS. ATTENDS IN PLACE. SHE HAS TOLERATED SIPS OF WATER THIS SHIFT, MEDICATED X 2 FOR PAIN. SHE IS LYING IN BED WITH THE CALL LIGHT IN REACH. REPORT WAS GIVEN TO DISK OPERATOR RN.
--- NOTE | 2023-07-02 06:30 | NUR ---
SHIFT SUMMARY: PT IS ADMITTED FOR INTRACRANIAL HEMORRHAGE AND IS A DNR. IS CURRENTLY ON COMFORT CARE. IS ALERT AND ABLE TO MAKE SOME NEEDS KNOWN BUT DOES HAVE CONFUSION AND WORD SALAD. ADLs ARE 1P MIN ASSIST. NO PAIN OR DISCOMFORT NOTED THROUGH SHIFT. IV TO RIGHT AC IS PATENT WITH A DRESSING THAT IS CDI. UP X1 TO BATHROOM.
--- NOTE | 2023-07-02 15:41 | NUR ---
Met with pt's son Dax, who identifies himself as her primary caregiver. He plans to continue caring for the pt with assistance of caregivers and hospice. He had questions initially about what hospice is, but after our conversation he states feeling more confident about continuing care at home. Dax chose [facility], and pt is discharging home tomorrow.
--- NOTE | 2023-07-02 16:57 | NUR ---
SHIFT SUMMARY PT RESTING QUIETLY AT START OF SHIFT, BUT AWAKE. BL BLACK/BLUE EYES AND FORHEAD D/T FALL AT HOME. PT NOW COMFORT CARE WITH INTERCRANIAL BLEED. PT WITH WORD SALAD AND DIFFICULT TO COMMUNICATE WITH. PT'S SON IN EARLY AT BS. DR SALES IN TO SEE PT AND DISCUSS PLAN OF CARE WITH SON. PT TO GO HOME ON HOSPICE TOMORROW. SAMPLE TESTER GRINDER ASSISTING WITH ARRANGEMENTS. PT'S SON LEAVING THIS AFTERNOON AND PT BECOMING VERY AGITATED, AND OOB FREQUENTLY. DR SALES NOTIFIED; NEW ORDERS PLACED. PT'S FIELD CREW CHIEF IN TO SEE HER ALSO REPORTING AGITATION AND POSSIBLE PAIN. PT MEDICATED PER EMAR. OTHER FAMILY TO RM AT BS. PT CALMING AND RESTING QUIELTY AGAIN. BED ALARM ON FOR SAFETY. PT UP TO BTHRM WITH 1P ASSISIT A COUPLE OF TIMES TODAY TO VOID. PT HAS BEEN CONTINENT TO PRESENT. CALL LT IN REACH.
--- NOTE | 2023-07-03 04:37 | NUR ---
NOC SHIFT SUMMARY: SLEPT WELL OVERNIGHT. MOVED SELF IN BED. POSSIBLE DISCHARGE HOME TODAY WITH HOSPICE. CALL LIGHT WITHIN REACH. BED IN LOW POSITION.
--- NOTE | 2023-07-03 13:59 | NUR ---
DISCHARGE HOME PT DISCHARGE WITH . IV REMOVED WITH COBAN 2X2 PRESSURE DRESSING APPLIED. BRENNER DRAINING MAROON FLUID. NO CLOTS. REMINDED HIM TO DRINK LOTS OF LIQUIDS TO KEEP HIS BLADDER FLUSHED. PROVIDED 2 LEG BAGS AND STRAPS FOR HOME USE. HE HAS USED THEM BEFORE. CONTINUE POC.
--- NOTE | 2023-07-03 14:10 | NUR ---
TRANSPORT PT AWAITING [facility] VIA [facility]. STAFF WAS UNDER THE IMPRESSION THAT SHE WAS BEING PICKED UP AT 1300. [facility]ELTZER ARRANGED TRANSPORT. L[employer] LEASING INFORMATION CLERK GOING TO CONTACT SELTZER TO CONFIRM. CARE ON GOING.
--- NOTE | 2023-07-03 14:29 | NUR ---
DISCHARGE PT DISCHArge to home hospice via gurney accompanied by emt. Daughter following in POV. pt alert and comfortable on the gurney. She was not distressed at all with the transfer. continue care.
== END 2023-07-03 14:25 | disposition hospice, home (50) ==
LOC: ER 02:02 → MEDS 02:03
PROVIDERS: Emergency Medicine; ADMIT Internal Medicine
DX: S06.6XAA Traumatic subarachnoid hemorrhage with loss of consciousness status unknown, initial encounter (principal); R41.82 Altered mental status, unspecified; E78.5 Hyperlipidemia, unspecified; I10 Essential (primary) hypertension; G30.9 Alzheimer's disease, unspecified; F02.80 Dementia in other diseases classified elsewhere, unspecified severity, without behavioral disturbance, psychotic disturbance, mood disturbance, and anxiety; E03.9 Hypothyroidism, unspecified; I25.2 Old myocardial infarction; I48.20 Chronic atrial fibrillation, unspecified; Z79.01 Long term (current) use of anticoagulants; Z88.0 Allergy status to penicillin; W18.30XA Fall on same level, unspecified, initial encounter
CPT/HCPCS: 70450; 72125; 80053; 85025; 93005; 93010; 96374; 96375; 96376; 99285-25; A9270; G0378; J2405; J3010; J7168